=== PATIENT | female | born 1985 | race African-American/Black ===

== ENCOUNTER 2017-12-18 16:12 | Inpatient (IN) ==
[~2017-12-18 16:12] MED LIST: LACTATED RINGERS 1,000 ML IV SCH
[2017-12-18 17:09] LABS: Basophils # 0.1 10*3/uL (0.0-0.2); Basophils % 0.6 % (0.0-0.8); Eosinophils # 0.1 10*3/uL (0.0-0.87); Eosinophils % 1.1 % (0.00-10.9); Hematocrit 28.3 VOL% (35.7-47.0); Hemoglobin 9.5 GM/DL (12.0-16.0); Immature Granulocytes % 0.7 %; Immature Granulocytes Absolute 0.07 #; Lymphocytes # 2.3 10*3/uL (1.4-4.0); Lymphocytes % 23.9 % (21.3-54.2); Mean Corpuscular HGB Conc 33.6 GM/DL (32-36); Mean Corpuscular Hemoglobin 22 PG (27-34); Mean Platelet Volume 9.9 FL (9.6-12.0); Monocytes # 0.8 10*3/uL (0.11-0.8); Monocytes % 8.5 % (1.7-12.7); Neutrophils # 6.2 10*3/uL (1.4-7.4); Neutrophils % 65.2 % (38.7-73.9); Platelet Count 375 T/CUMM (130-400); Red Blood Count 4.29 MC/CUMM (3.8-5.5); Red Cell Distribution Width 16.5 % (9.3-17.3); White Blood Count 9.6 T/CUMM (4-12)
[2017-12-18] MEDS ORDERED: hydrALAZINE 20 MG/1 ML VIAL ONE ×2 (17:35→18:20)
[2017-12-18] MEDS: LACTATED RINGERS 1,000 ML IV SCH (18:52)
[2017-12-18 18:53] LABS: PT Patient Result 10.5 SECS; Partial Thromboplastin Time 29.9 SECS (0-40)
[2017-12-18] MEDS ORDERED: ONDANSETRON 4 MG/2 ML VIAL IV PRN (18:54)
[2017-12-18 18:55] LABS: Alanine Aminotransferase 20 U/L (13-56); Albumin 2.2 G/DL (3.4-5.0); Alkaline Phosphatase 124 U/L (45-117); Aspartate Amino Transferase 18 U/L (0-37); Bilirubin,Total < 0.39 MG/DL (0.2-1.0); Blood Urea Nitrogen 5 MG/DL (7-18); Calcium 8.5 MG/DL (8.5-10.1); Glucose 120 MG/DL (74-106); Osmolality,Calculated 276.4 MOS/KG (273-304); Potassium 3.2 MMOL/L (3.5-5.1); Sodium 140 MMOL/L (136-145); Total Protein 7.1 G/DL (6.4-8.3); Uric Acid 5.3 MG/DL (2.6-6.0)
[2017-12-18] MEDS: hydrALAZINE 20 MG/1 ML VIAL IV PRN ×2 (19:09→19:10)
[2017-12-18] MEDS: LABETALOL 200 MG TABLET PO SCH (20:28)
[2017-12-19 05:04] LABS: Basophils % 0.3 % (0.0-0.8); Eosinophils # 0.1 10*3/uL (0.0-0.87); Eosinophils % 1.1 % (0.00-10.9); Hematocrit 27.5 VOL% (35.7-47.0); Hemoglobin 9.3 GM/DL (12.0-16.0); Immature Granulocytes % 0.4 %; Immature Granulocytes Absolute 0.04 #; Lymphocytes % 20.3 % (21.3-54.2); Mean Corpuscular HGB Conc 33.8 GM/DL (32-36); Mean Corpuscular Hemoglobin 22 PG (27-34); Mean Corpuscular Volume 64.6 FL (87-102); Mean Platelet Volume 9.6 FL (9.6-12.0); Monocytes # 1.1 10*3/uL (0.11-0.8); Monocytes % 11.5 % (1.7-12.7); Neutrophils # 6.5 10*3/uL (1.4-7.4); Neutrophils % 66.4 % (38.7-73.9); Platelet Count 367 T/CUMM (130-400); Red Blood Count 4.26 MC/CUMM (3.8-5.5); Red Cell Distribution Width 16.7 % (9.3-17.3); White Blood Count 9.7 T/CUMM (4-12)
[2017-12-19 05:24] LABS: Alanine Aminotransferase 18 U/L (13-56); Albumin 2.1 G/DL (3.4-5.0); Alkaline Phosphatase 112 U/L (45-117); Aspartate Amino Transferase 19 U/L (0-37); Bilirubin,Total < 0.39 MG/DL (0.2-1.0); Blood Urea Nitrogen 5 MG/DL (7-18); Calcium 8.2 MG/DL (8.5-10.1); Glucose 76 MG/DL (74-106); Osmolality,Calculated 272.5 MOS/KG (273-304); Potassium 3.5 MMOL/L (3.5-5.1); Sodium 139 MMOL/L (136-145); Total Protein 6.7 G/DL (6.4-8.3)
[2017-12-19] MEDS ORDERED: OXYTOCIN 10 UNIT/ML VIAL IM ONE (06:49)
[2017-12-19] MEDS ORDERED: OXYTOCIN/LR 30 UNIT/1,000 ML BAG IV ONE (06:49)
[2017-12-19] MEDS: LACTATED RINGERS 1,000 ML IV SCH ×3 (06:57→23:21)
[2017-12-19] MEDS ORDERED: FAMOTIDINE 20 MG/2 ML VIAL IV ONE (07:00)
[2017-12-19] MEDS ORDERED: CITRIC ACID/SODIUM CITRATE 30 ML UDCUP PO ONE (07:00)
[2017-12-19] MEDS ORDERED: BUPIVACAINE SPINAL 0.75% 2 ML AMP SPINAL ONE (07:08)
[2017-12-19] MEDS: LABETALOL 200 MG TABLET PO SCH ×2 (07:35→23:22)
[2017-12-19] MEDS ORDERED: SODIUM CHLORIDE 0.9% 1,000 ML IV PRN (09:21)
[2017-12-19 09:37] LABS: Cord Arterial Blood HCO3 25.7 MMOL/L
[2017-12-19 09:39] LABS: Cord Venous Blood HCO3 22.2 MMOL/L; Cord Venous Blood PCO2 44.1 MMHG; Cord Venous Blood PO2 31.7
[2017-12-19] MEDS ORDERED: MORPHINE 10 MG/10 ML VIAL ONE (09:52)
[2017-12-19] MEDS ORDERED: PHENYLEPHRINE 1 MG/10 ML SYRINGE IV ONE (09:53)
[2017-12-19] MEDS ORDERED: SODIUM CHLORIDE 0.9% 250 ML IV ONE (09:54)
[2017-12-19] MEDS ORDERED: fentaNYL 100 MCG/2 ML VIAL ONE (09:54)
[2017-12-19] MEDS ORDERED: OXYTOCIN/LR 20 UNIT/1,000 ML BAG IV ONE (10:15)
[2017-12-19] MEDS ORDERED: ACETAMINOPHEN 1,000 MG/100 ML VIAL IV ONE (11:06)
[2017-12-19] MEDS ORDERED: PROMETHAZINE 25 MG/1 ML VIAL IM PRN (13:48)
[2017-12-19 15:02] LABS: Apearance,Urine CLEAR (Clear); Bilirubin,Urine Negative (Negative); Blood, Urine Negative (Negative); Glucose,Urine (UA) Negative (Negative); Ketones,Urine 5 mg/dL (Negative); Mucus,Urine Occasional /LPF (Occasional); Nitrite,Urine Negative (Negative); Protein,Urine Negative; RBC,Urine 1 /HPF (0-4); Squamous Epithelial Cell,Urine Occasional /HPF (0-10); Urine Color Yellow (Yellow); Urine Specific Gravity 1.009 (1.001-1.035); Urine Urobilinogen < 2.0 EU/DL (0.2-1.0); WBC,Urine 11 /HPF (0-6)
[2017-12-19] MEDS: ceFAZolin 1,000 MG in SYRINGE 1 EACH IV SCH (17:11)
[2017-12-19 17:21] LABS: Basophils % 0.2 % (0.0-0.8); Eosinophils % 0.2 % (0.00-10.9); Hematocrit 31.6 VOL% (35.7-47.0); Hemoglobin 10.7 GM/DL (12.0-16.0); Immature Granulocytes % 0.4 %; Immature Granulocytes Absolute 0.07 #; Lymphocytes # 1.8 10*3/uL (1.4-4.0); Lymphocytes % 10.6 % (21.3-54.2); Mean Corpuscular HGB Conc 33.9 GM/DL (32-36); Mean Corpuscular Hemoglobin 24 PG (27-34); Mean Corpuscular Volume 69.5 FL (87-102); Mean Platelet Volume 9.8 FL (9.6-12.0); Monocytes # 1.6 10*3/uL (0.11-0.8); Monocytes % 9.3 % (1.7-12.7); Neutrophils # 13.3 10*3/uL (1.4-7.4); Neutrophils % 79.3 % (38.7-73.9); Platelet Count 339 T/CUMM (130-400); Red Blood Count 4.55 MC/CUMM (3.8-5.5); Red Cell Distribution Width 19.8 % (9.3-17.3); White Blood Count 16.8 T/CUMM (4-12)
[2017-12-19] MEDS ORDERED: IBUPROFEN 800 MG TABLET ONE (20:50)
[2017-12-19] MEDS: IBUPROFEN 800 MG TABLET PO PRN (20:56)
[2017-12-19] MEDS ORDERED: diphenhydrAMINE CAP 50 MG CAPSULE PO PRN (22:14)
[2017-12-20] MEDS ORDERED: SODIUM CHLORIDE 0.9% 100 ML IV ONE (01:22)
[2017-12-20] MEDS: ceFAZolin 1,000 MG in SYRINGE 1 EACH IV SCH (01:28)
[2017-12-20] MEDS: LACTATED RINGERS 1,000 ML IV SCH ×2 (04:41→10:09)
[2017-12-20 07:28] LABS: Basophils % 0.2 % (0.0-0.8); Eosinophils # 0.1 10*3/uL (0.0-0.87); Eosinophils % 0.8 % (0.00-10.9); Hematocrit 31.9 VOL% (35.7-47.0); Hemoglobin 10.8 GM/DL (12.0-16.0); Immature Granulocytes % 0.6 %; Lymphocytes # 1.7 10*3/uL (1.4-4.0); Lymphocytes % 10.1 % (21.3-54.2); Mean Corpuscular HGB Conc 33.9 GM/DL (32-36); Mean Corpuscular Hemoglobin 23 PG (27-34); Mean Corpuscular Volume 68.2 FL (87-102); Mean Platelet Volume 9.7 FL (9.6-12.0); Monocytes # 1.8 10*3/uL (0.11-0.8); Monocytes % 10.9 % (1.7-12.7); Neutrophils % 77.4 % (38.7-73.9); Platelet Count 359 T/CUMM (130-400); Red Blood Count 4.68 MC/CUMM (3.8-5.5); Red Cell Distribution Width 19.7 % (9.3-17.3); White Blood Count 16.8 T/CUMM (4-12)
[2017-12-20] MEDS: IBUPROFEN 800 MG TABLET PO PRN ×3 (07:28→23:18)
[2017-12-20 07:54] LABS: PT Patient Result 10.2 SECS
[2017-12-20] MEDS: DOCUSATE SODIUM 100 MG CAPSULE PO SCH ×2 (08:54→20:13)
[2017-12-20] MEDS: MULTIVITAMIN (PRENATAL) TABLET PO SCH (08:54)
[2017-12-20] MEDS ORDERED: METOCLOPRAMIDE 10 MG TABLET PO PRN (09:00)
[2017-12-20 09:25] LABS: Basophils # 0.1 10*3/uL (0.0-0.2); Basophils % 0.4 % (0.0-0.8); Eosinophils # 0.1 10*3/uL (0.0-0.87); Eosinophils % 0.4 % (0.00-10.9); Hematocrit 31.1 VOL% (35.7-47.0); Hemoglobin 10.6 GM/DL (12.0-16.0); Immature Granulocytes % 0.5 %; Immature Granulocytes Absolute 0.08 #; Lymphocytes # 1.4 10*3/uL (1.4-4.0); Lymphocytes % 8.4 % (21.3-54.2); Mean Corpuscular HGB Conc 34.1 GM/DL (32-36); Mean Corpuscular Hemoglobin 23 PG (27-34); Mean Corpuscular Volume 68.4 FL (87-102); Mean Platelet Volume 9.6 FL (9.6-12.0); Monocytes # 1.5 10*3/uL (0.11-0.8); Neutrophils # 13.4 10*3/uL (1.4-7.4); Neutrophils % 81.3 % (38.7-73.9); Platelet Count 354 T/CUMM (130-400); Red Blood Count 4.55 MC/CUMM (3.8-5.5); Red Cell Distribution Width 19.7 % (9.3-17.3); White Blood Count 16.5 T/CUMM (4-12)
[2017-12-20] MEDS: MAGNESIUM HYDROXIDE SUSP 30 ML UDCUP PO PRN (20:13)
[2017-12-20] MEDS: METOCLOPRAMIDE 10 MG TABLET PO SCH (21:41)
[2017-12-21] MEDS: IBUPROFEN 800 MG TABLET PO PRN ×3 (06:03→19:03)
[2017-12-21] MEDS: METOCLOPRAMIDE 10 MG TABLET PO SCH ×3 (06:03→21:45)
[2017-12-21] MEDS: MULTIVITAMIN (PRENATAL) TABLET PO SCH (08:50)
[2017-12-21] MEDS: DOCUSATE SODIUM 100 MG CAPSULE PO SCH ×2 (08:50→21:45)
[2017-12-21] MEDS: MAGNESIUM HYDROXIDE SUSP 30 ML UDCUP PO PRN ×2 (08:50→21:46)
[2017-12-21] MEDS ORDERED: MEPERIDINE 50 MG/1 ML VIAL IM ONE (23:14)
[2017-12-21] MEDS ORDERED: PROMETHAZINE 25 MG/1 ML VIAL IM ONE (23:15)
[2017-12-22] MEDS: IBUPROFEN 800 MG TABLET PO PRN (04:22)
[2017-12-22] MEDS: METOCLOPRAMIDE 10 MG TABLET PO SCH (04:22)
[2017-12-22 07:28] VITALS: BP 141/73
[2017-12-22] MEDS: MULTIVITAMIN (PRENATAL) TABLET PO SCH (08:10)
[2017-12-22] MEDS: DOCUSATE SODIUM 100 MG CAPSULE PO SCH (08:10)
[2017-12-22] MEDS: MAGNESIUM HYDROXIDE SUSP 30 ML UDCUP PO PRN (08:10)
== END 2017-12-22 13:35 | disposition home or self-care (01) | DRG 765 ==
LOC: N.LDOUT 16:12 → N.LD 16:12 → N.OB 12-19 13:14
PROVIDERS: ADMIT Obstetrics & Gynecology; ATTEND Obstetrics & Gynecology
PROC: LDCSECT (ICD-10-PCS; 2017-12-19 08:00)